=== PATIENT | male | born 1960 | race Caucasian/White ===

== ENCOUNTER → 2024-08-15 | Outpatient (CLI) | payer OTHER ==
[2024-08-15 16:56] LABS: Albumin, Blood 3.8 g/dL (3.4-5.0); Bilirubin, Total 0.3 mg/dL (0.1-1.0); Bun/Creatinine Ratio 24.9 (12.0-20.0); Calcium, Blood 9.6 mg/dL (8.5-10.1); Creatinine, Blood 1.73 mg/dL (0.60-1.20); Globulin, Blood 3.8 g/dL (2.2-4.0); Potassium, Blood 4.4 mmol/L (3.5-5.5); Total Protein, Blood 7.6 g/dL (6.4-8.2)
== END | disposition home or self-care (01) ==
LOC: LAB 15:57 → LAB SHORT 15:57
PROVIDERS: Physician Assistant
DX: R77.1 Abnormality of globulin (principal)
CPT/HCPCS: 36415; 80053

== ENCOUNTER 2025-04-22 11:58 | Emergency (ER) | payer OTHER ==
[~2025-04-22] VITALS: Ht 175.3 cm; Wt 127.0 kg
[2025-04-22] MEDS ORDERED: CEPH500 PO (19:53)
== END 2025-04-22 20:11 | disposition home or self-care (01) ==
LOC: ER 11:58
DX: S62.611B Displaced fracture of proximal phalanx of left index finger, initial encounter for open fracture (principal); Z23 Encounter for immunization; Z88.0 Allergy status to penicillin; W20.8XXA Other cause of strike by thrown, projected or falling object, initial encounter
CPT/HCPCS: 73130; 73140; 90715; A9270

== ENCOUNTER 2025-04-25 10:16 | Day surgery (SDC) | payer OTHER ==
[~2025-04-25] VITALS: Ht 175.3 cm; Wt 127.9 kg
[~2025-04-25 10:16] MED LIST: CEPH500 PO; Lidocaine HCl 2% 10 ML SDA ONE
[2025-04-25] MEDS ORDERED: CeFAZolin Sodium 3,000 MG VIAL ONE (10:56)
[2025-04-25] MEDS ORDERED: NEURONTIN40010 PO (11:14)
[2025-04-25] MEDS ORDERED: JARDIANCE25 MG PO (11:15)
[2025-04-25] MEDS ORDERED: CITALOPRAM HBR20 M9 PO (11:15)
[2025-04-25] MEDS ORDERED: OZEMPIC2 MG/0.75 SC (11:16)
[2025-04-25] MEDS ORDERED: AMLODIPINE BESY10 MG PO (11:16)
[2025-04-25] MEDS ORDERED: CHLO25B PO (11:17)
[2025-04-25] MEDS ORDERED: CARVEDILOL25 M9 PO (11:17)
[2025-04-25] MEDS ORDERED: PIOGLITAZONE HC45 MG (11:17)
[2025-04-25] MEDS ORDERED: Prinivil10 MG (11:17)
[2025-04-25] MEDS ORDERED: REZVOGLAR100 UNIT/1 SC (11:18)
[2025-04-25] MEDS ORDERED: ATORVASTATIN CA20 MG PO (11:18)
[2025-04-25] MEDS ORDERED: SPIRONOLACTONE50 MG PO (11:18)
[2025-04-25] MEDS ORDERED: MASOPHEN500 M1 PO (11:23)
[2025-04-25] MEDS ORDERED: Rocuronium Bromide 10 MG/ML 5ML Injection IV ONE (12:11)
[2025-04-25] MEDS ORDERED: Ondansetron HCl 2 MG / ML 2ML Vial ONE (12:11)
[2025-04-25] MEDS ORDERED: FentaNYL Citrate 50 MCG/ML 2 ML Injection ONE ×2 (12:11→13:16)
[2025-04-25] MEDS ORDERED: Ketorolac Tromethamine 30mg Vial ONE (12:11)
[2025-04-25] MEDS ORDERED: Dexamethasone Sod Phos 10 MG/ML 1ML VIAL ONE (12:11)
[2025-04-25] MEDS ORDERED: Sugammadex Sodium 200 MG/2ML SDV (100 MG/ML) ONE (13:35)
== END 2025-04-25 14:50 | disposition home or self-care (01) ==
LOC: ORSCSDS 10:16
PROVIDERS: Orthopaedic Surgery
PROC: 0PSV04Z Reposition Left Finger Phalanx with Internal Fixation Device, Open Approach (ICD-10-PCS; principal; 2025-04-25 12:45)
PROC: 0XJ Anatomical Regions, Upper Extremities, Inspection (ICD-10-PCS; principal; 2025-04-25 12:45)
PROC: 0LQ80ZZ Repair Left Hand Tendon, Open Approach (ICD-10-PCS; principal; 2025-04-25 12:45)
DX: S62.611A Displaced fracture of proximal phalanx of left index finger, initial encounter for closed fracture (principal); W31.89XA Contact with other specified machinery, initial encounter; E11.9 Type 2 diabetes mellitus without complications; I10 Essential (primary) hypertension; E78.5 Hyperlipidemia, unspecified; F32.A Depression, unspecified; Z87.891 Personal history of nicotine dependence; Z79.899 Other long term (current) drug therapy; Z79.85 Long-term (current) use of injectable non-insulin antidiabetic drugs; Z79.84 Long term (current) use of oral hypoglycemic drugs; G47.33 Obstructive sleep apnea (adult) (pediatric); E66.01 Morbid (severe) obesity due to excess calories; Z68.41 Body mass index [BMI] 40.0-44.9, adult
CPT/HCPCS: 82947; C1713; C1889; J0690; J1100; J1885; J2003; J2405; J2704; J3010; J7120